=== PATIENT | male | born 1945 | race Caucasian/White ===

== ENCOUNTER 2022-05-11 16:45 | Emergency (ER) | payer OTHER ==
[~2022-05-11] VITALS: Ht 193 cm; Wt 145.1 kg
--- NOTE | 2022-05-11 17:05 | NUR ---
PT TRIAGED IN WAITING ROOM. PT HAS C/O RIGHT LOWER EXTREMITY PAIN FOR ONE WEEK. PT HAS BLE 2+ EDEMA, RIGHT LEG IS HOT TO TOUCH, COMPARED TO LLE EXTREMITY. PT HAS SOB UPON EXERTION. PT AMBULATES WITH CANE. PT REPORTS HX OF HTN, CHRONIC BACK PAIN, PACEMAKER, AORTIC ANERYSM, CHOLCYSTECTOMY, AND DX OF UTI 10 DAYS AGO WITH 2 DAYS LEFT OF ANTIBIOTIC MEDICATION TO COMPLETE-CIPRO. VSS. RESP E/U. ON R/A. NO COUGH OR SOB NOTED. O2 SAT 95%. DENIES N/V/D/C.
[2022-05-11 17:14] VITALS: BP_SYST 129
--- NOTE | 2022-05-11 17:25 | NUR ---
DR. LOREDO ASSESSED PT, STATED HE WILL ORDER U/S. PT AGREED WITH POC.
--- NOTE | 2022-05-11 17:38 | NUR ---
report to hany rubi saw patient in triage
--- NOTE | 2022-05-11 17:43 | NUR ---
ERMD STATED NO IV START
[2022-05-11 18:25] LABS: BASOPHILS # (AUTO) 0.1 K/uL (0.0-0.2); BASOPHILS % (AUTO) 0.6 % (0.0-2.0); EOSINOPHILS # (AUTO) 0.4 K/uL (0.0-0.4); EOSINOPHILS % (AUTO) 3.7 % (0.0-4.0); HEMATOCRIT 36.1 % (36-54); HEMOGLOBIN 12.2 g/dL (14.0-18.0); LYMPHOCYTES # (AUTO) 1.6 K/uL (1.0-5.5); LYMPHOCYTES % (AUTO) 15.3 % (20.5-51.5); MEAN CORPUSCULAR HEMOGLOBIN 31 pg (27-31); MEAN CORPUSCULAR HGB CONC 34 % (32-36); MEAN CORPUSCULAR VOLUME 91 fL (79.0-98.0); MONOCYTES # (AUTO) 1.2 K/uL (0.0-1.0); MONOCYTES % (AUTO) 11.1 % (1.7-9.3); NEUTROPHILS # (AUTO) 7.3 K/uL (1.8-7.7); NEUTROPHILS % (AUTO) 69.3 % (40.0-70.0); PLATELET COUNT (AUTO) 178 K/uL (130-430); RED BLOOD CELL COUNT(AUTO) 3.95 MIL/uL (4.2-6.2); WHITE BLOOD COUNT (AUTO) 10.6 K/uL (4.8-10.8)
[2022-05-11 18:50] LABS: ANION GAP 5 (5-15); CALCIUM 8.9 mg/dL (8.4-11.0); CHLORIDE 100 mmol/L (98-107); CREATININE 0.99 mg/dL (0.55-1.30); GLUCOSE 145 mg/dL (70-99); POTASSIUM 4.3 mmol/L (3.5-5.1); SODIUM SERUM 138 mmol/L (136-145); UREA NITROGEN, BLOOD 21 mg/dL (8-21)
[2022-05-11 18:56] LABS: ALANINE AMINOTRANSFERASE 9 U/L (12-78); ALBUMIN 3.1 g/dL (3.4-4.8); ASPARTATE AMINOTRANSFERASE 14 U/L (10-37); C-REACTIVE PROTEIN QUANT 9.8 mg/dL (0-0.5); TOTAL BILIRUBIN 0.6 mg/dL (0.0-1.0)
[2022-05-11 21:14] VITALS: BP_SYST 122
--- NOTE | 2022-05-11 21:14 | NUR ---
Patient given written and verbal discharge instructions and verbalizes understanding. ER MD discussed with patient the results and treatment provided. Patient in stable condition. ID arm band removed. No Rx given. Patient educated on pain management and to follow up with PMD. Pain Scale 5/10. Opportunity for questions provided and answered. Patient accompanied by son in law.
== END 2022-05-11 21:14 | disposition home or self-care (01) ==
LOC: SED 16:45
DX: M79.661 Pain in right lower leg (principal); Z79.899 Other long term (current) drug therapy
CPT/HCPCS: 36415; 80053; 83605; 85025; 86140; 93971; 99284

== ENCOUNTER 2024-03-27 11:26 | Inpatient (IN) | payer OTHER ==
[~2024-03-27] VITALS: Ht 193 cm; Wt 154.2 kg
[2024-03-27 11:56] VITALS: BP_SYST 161; PULSE 64; RESP 17; TEMP 97.4; O2SAT 95
[2024-03-27 12:19] LABS: BASOPHILS # (AUTO) 0.1 K/uL (0.0-0.2); BASOPHILS % (AUTO) 0.8 % (0.0-2.0); EOSINOPHILS # (AUTO) 0.4 K/uL (0.0-0.4); EOSINOPHILS % (AUTO) 4.3 % (0.0-4.0); HEMATOCRIT 35.2 % (36-54); HEMOGLOBIN 11.6 g/dL (14.0-18.0); LYMPHOCYTES # (AUTO) 1.3 K/uL (1.0-5.5); LYMPHOCYTES % (AUTO) 15.5 % (20.5-51.5); MEAN CORPUSCULAR HEMOGLOBIN 31 pg (27-31); MEAN CORPUSCULAR HGB CONC 33 % (32-36); MEAN CORPUSCULAR VOLUME 93 fL (79.0-98.0); MONOCYTES # (AUTO) 0.7 K/uL (0.0-1.0); MONOCYTES % (AUTO) 8.3 % (1.7-9.3); NEUTROPHILS # (AUTO) 5.9 K/uL (1.8-7.7); NEUTROPHILS % (AUTO) 71.1 % (40.0-70.0); PLATELET COUNT (AUTO) 180 K/uL (130-430); WHITE BLOOD COUNT (AUTO) 8.3 K/uL (4.8-10.8)
[2024-03-27] MEDS ORDERED: methylPREDNISolone SOD SUCC/PF 62.5 MG/ML VIAL ONE (12:58)
[2024-03-27] MEDS: methylPREDNISolone SOD SUCC 500 MG/VIAL (Solu-MEDROL) IV ONE (13:04)
[2024-03-27] MEDS: NACL 0.9% 1,000 ML IV ONE (13:04)
[2024-03-27] MEDS: DIPHENHYDRAMINE INJ 50 MG/ML VIAL IVP ONE (13:05)
[2024-03-27 13:09] LABS: ANION GAP 5 (5-15); CALCIUM 8.7 mg/dL (8.4-11.0); CARBON DIOXIDE 30 mmol/L (23-29); CHLORIDE 102 mmol/L (98-107); CREATININE 1.14 mg/dL (0.55-1.30); GLUCOSE 153 mg/dL (74-106); POTASSIUM 4.2 mmol/L (3.5-5.1); SODIUM SERUM 137 mmol/L (136-145); UREA NITROGEN, BLOOD 18 mg/dL (8-21)
[2024-03-27] MEDS ORDERED: FURO40TA5 PO (14:06)
[2024-03-27] MEDS ORDERED: POTA-198 PO (14:06)
[2024-03-27] MEDS ORDERED: SIMV-345 PO (14:06)
[2024-03-27] MEDS ORDERED: GABA300T25 PO (14:08)
[2024-03-27] MEDS ORDERED: METF-379 PO (14:08)
[2024-03-27] MEDS ORDERED: LOSA50TA28 PO (14:08)
[2024-03-27] MEDS ORDERED: ASPI81CA PO (14:08)
[2024-03-27] MEDS ORDERED: DOXA2TAB2 PO (14:08)
[2024-03-27] MEDS ORDERED: NEBI5TAB2 PO (14:08)
[2024-03-27 15:30] VITALS: PULSE 68; O2SAT 95
[2024-03-27] MEDS ORDERED: MORPHINE 2 MG/ML INJ. SYRINGE IVP PRN (15:30)
[2024-03-27] MEDS ORDERED: ALBUTEROL SULFATE 0.083% 2.5 MG/3 ML VIAL.NEB INH PRN (15:30)
[2024-03-27] MEDS ORDERED: HYDROcodone/ACETAMIN 5-325 MG TAB (NORCO/ VICODIN) PO PRN (15:30)
[2024-03-27] MEDS ORDERED: ACETAMINOPHEN 325 MG TABLET PO PRN (15:30)
[2024-03-27] MEDS ORDERED: ONDANSETRON HCL 4 MG/2 ML VIAL IVP PRN (15:30)
[2024-03-27] MEDS ORDERED: ASPIRIN 81 MG TAB.CHEW ONE (15:51)
[2024-03-27] MEDS: ASPIRIN 81 MG TAB.CHEW PO ONE (15:53)
[2024-03-27] MEDS: LOSARTAN POTASSIUM 50 MG TABLET (COZAAR) PO ONE (16:29)
[2024-03-27 17:41] LABS: BILIRUBIN,URINE NEGATIVE (NEGATIVE); BLOOD, URINE NEGATIVE (NEGATIVE); CLARITY/URINE CLEAR (CLEAR); COLOR,URINE YELLOW (YELLOW); GLUCOSE,URINE NEGATIVE (NEGATIVE); KETONES,URINE NEGATIVE (NEGATIVE); LEUKOCYTE ESTERASE ,URINE TRACE (NEGATIVE); NITRITE, URINE NEGATIVE (NEGATIVE); PROTEIN URINE NEGATIVE (NEGATIVE)
[2024-03-27 17:53] LABS: BACTERIA,URINE RARE /HPF (None Seen); MUCUS,URINE None Seen /LPF (None Seen); RBC,URINE 0-3 /HPF (0-3)
[2024-03-27 18:16] VITALS: BP_SYST 156; PULSE 66; RESP 18; TEMP 98.6; O2SAT 94
[2024-03-27] MEDS: hydrALAZINE HCL 20 MG/ML VIAL IVP PRN (20:22)
[2024-03-27] MEDS: HYDROcodone/ACETAMIN 10-325 MG TAB PO PRN (20:22)
[2024-03-28] MEDS ORDERED: DOXAZOSIN MESYLATE 2 MG TABLET PO SCH (09:00)
[2024-03-28] MEDS ORDERED: LOSARTAN POTASSIUM 50 MG TABLET (COZAAR) PO SCH (09:00)
[2024-03-28] MEDS ORDERED: ASPIRIN 81 MG TAB.CHEW PO SCH (09:00)
[2024-03-28] MEDS ORDERED: SIMVASTATIN 40 MG TABLET PO SCH (09:00)
== END 2024-03-27 21:27 | disposition left against medical advice (07) | DRG 206 ==
LOC: SED 11:26 → STU 15:25
PROVIDERS: ADMIT Family Medicine; ATTEND Family Medicine
DX: M94.0 Chondrocostal junction syndrome [Tietze] (principal); Z68.41 Body mass index [BMI] 40.0-44.9, adult; I10 Essential (primary) hypertension; E66.01 Morbid (severe) obesity due to excess calories; E78.5 Hyperlipidemia, unspecified; E11.9 Type 2 diabetes mellitus without complications; Z53.29 Procedure and treatment not carried out because of patient's decision for other reasons; Z79.84 Long term (current) use of oral hypoglycemic drugs; Z79.899 Other long term (current) drug therapy; Z88.8 Allergy status to other drugs, medicaments and biological substances; Z95.0 Presence of cardiac pacemaker; Z79.82 Long term (current) use of aspirin; Z90.49 Acquired absence of other specified parts of digestive tract
CPT/HCPCS: 36415; 71045; 71275; 80048; 81000; 81001; 81015; 83037; 83880; 84484; 85025; 87086; 93005; 94070; 96374; 96375; 99285; G0378; J0360; J1200; J2930; Q9967

== ENCOUNTER 2024-03-30 03:51 | Inpatient (IN) | payer OTHER ==
[~2024-03-30] VITALS: Ht 190.5 cm; Wt 156.5 kg
[~2024-03-30 03:51] MED LIST: ASPI81CA PO; DOXA2TAB2 PO; FURO40TA5 PO; GABA300T25 PO; LOSA50TA28 PO; METF-379 PO; NEBI5TAB9 PO; POTA-198 PO; SIMV-345 PO
[2024-03-30 04:03] VITALS: BP_SYST 133; PULSE 70; RESP 16; TEMP 97.7; O2SAT 94
[2024-03-30 04:42] LABS: BASOPHILS # (AUTO) 0.1 K/uL (0.0-0.2); BASOPHILS % (AUTO) 0.9 % (0.0-2.0); EOSINOPHILS # (AUTO) 0.3 K/uL (0.0-0.4); EOSINOPHILS % (AUTO) 3.6 % (0.0-4.0); HEMATOCRIT 35.8 % (36-54); LYMPHOCYTES # (AUTO) 1.5 K/uL (1.0-5.5); MEAN CORPUSCULAR HEMOGLOBIN 31 pg (27-31); MEAN CORPUSCULAR HGB CONC 34 % (32-36); MEAN CORPUSCULAR VOLUME 92 fL (79.0-98.0); MONOCYTES # (AUTO) 0.7 K/uL (0.0-1.0); NEUTROPHILS # (AUTO) 6.2 K/uL (1.8-7.7); NEUTROPHILS % (AUTO) 70.5 % (40.0-70.0); PLATELET COUNT (AUTO) 203 K/uL (130-430); RED BLOOD CELL COUNT(AUTO) 3.88 MIL/uL (4.2-6.2); RED CELL DISTRIBUTION WIDTH 14.4 % (9.0-15.0); WHITE BLOOD COUNT (AUTO) 8.8 K/uL (4.8-10.8)
[2024-03-30] MEDS ORDERED: NITROGLYCERIN 1 INCH (GM) OINT. ONE (04:45)
[2024-03-30] MEDS: MORPHINE 4 MG INJ. 4 MG/ML VIAL IVP ONE (04:46)
[2024-03-30] MEDS: NITROGLYCERIN 1 INCH (GM) OINT. TP ONE (04:47)
[2024-03-30 05:11] LABS: ALANINE AMINOTRANSFERASE 15 U/L (12-78); ALBUMIN 3.1 g/dL (3.4-4.8); ANION GAP 9 (5-15); ASPARTATE AMINOTRANSFERASE 14 U/L (10-37); BILIRUBIN,DIRECT 0.2 mg/dL (0.0-0.3); CALCIUM 8.8 mg/dL (8.4-11.0); CARBON DIOXIDE 28 mmol/L (23-29); CHLORIDE 104 mmol/L (98-107); GLUCOSE 168 mg/dL (74-106); POTASSIUM 3.9 mmol/L (3.5-5.1); SODIUM SERUM 141 mmol/L (136-145); TOTAL BILIRUBIN 0.7 mg/dL (0.0-1.0); TOTAL PROTEIN, SERUM 6.6 g/dL (6.4-8.3); UREA NITROGEN, BLOOD 24 mg/dL (8-21)
[2024-03-30 08:25] VITALS: BP_SYST 130; PULSE 84; RESP 18; TEMP 97; O2SAT 95
[2024-03-30 08:36] VITALS: BP_SYST 130; PULSE 84; RESP 17; TEMP 98
[2024-03-30] MEDS ORDERED: LORazepam 2 MG/ML VIAL IVP PRN (08:45)
[2024-03-30] MEDS ORDERED: HYDROcodone/ACETAMIN 10-325 MG TAB PO PRN (08:45)
[2024-03-30] MEDS ORDERED: ACETAMINOPHEN 325 MG TABLET PO PRN (08:45)
[2024-03-30] MEDS ORDERED: NALOXONE HCL 0.4 MG/ML AMP (NARCAN) IVP PRN ×2 (08:45)
[2024-03-30] MEDS ORDERED: INSULIN REGULAR, HUMAN 100 UNITS/ML, 3 ML VIAL (humuLIN R) SUBCUT PRN (08:45)
[2024-03-30] MEDS ORDERED: GABAPENTIN PO SCH (09:00)
[2024-03-30 09:21] LABS: CHOLESTEROL 124 mg/dL (<200); HDL CHOLESTEROL 44 mg/dL (>45); TRIGLYCERIDES 109 mg/dL (30-150)
[2024-03-30] MEDS: FUROSEMIDE 40 MG TABLET PO SCH (11:40)
[2024-03-30] MEDS: DOXAZOSIN MESYLATE 2 MG TABLET PO SCH (11:41)
[2024-03-30] MEDS: LOSARTAN POTASSIUM 50 MG TABLET (COZAAR) PO SCH (11:42)
[2024-03-30] MEDS: POTASSIUM CHLORIDE 20 MEQ TABLET.ER PO SCH (11:42)
[2024-03-30] MEDS: METOPROLOL TARTRATE 25 MG TABLET PO ONE (11:48)
[2024-03-30 13:11] VITALS: O2SAT 96
[2024-03-30] MEDS: HYDROcodone/ACETAMIN 5-325 MG TAB (NORCO/ VICODIN) PO PRN (14:06)
[2024-03-30] MEDS: ONDANSETRON HCL 4 MG/2 ML VIAL IVP PRN (14:54)
[2024-03-30] MEDS: NORMAL SALINE 5 ML DISP.SYRIN IVF SCH (14:55)
[2024-03-30] MEDS ORDERED: METOPROLOL TARTRATE 25 MG TABLET PO SCH (21:00)
[2024-03-30] MEDS: CARVEDILOL 12.5 MG TABLET (COREG) PO SCH (22:17)
[2024-03-30] MEDS: SIMVASTATIN 40 MG TABLET PO SCH (22:18)
[2024-03-30 22:21] VITALS: BP_SYST 130; PULSE 63; RESP 20; TEMP 98; O2SAT 98
[2024-03-30 23:03] VITALS: O2SAT 95
[2024-03-31 01:22] VITALS: BP_SYST 122; BP_SYST 133; PULSE 66; PULSE 79; RESP 18; RESP 19; TEMP 97.7; TEMP 98.6; O2SAT 93; O2SAT 95
[2024-03-31 04:36] LABS: BASOPHILS # (AUTO) 0.1 K/uL (0.0-0.2); BASOPHILS % (AUTO) 0.7 % (0.0-2.0); EOSINOPHILS # (AUTO) 0.4 K/uL (0.0-0.4); EOSINOPHILS % (AUTO) 3.4 % (0.0-4.0); HEMATOCRIT 33.8 % (36-54); HEMOGLOBIN 11.5 g/dL (14.0-18.0); LYMPHOCYTES # (AUTO) 1.4 K/uL (1.0-5.5); LYMPHOCYTES % (AUTO) 13.4 % (20.5-51.5); MEAN CORPUSCULAR HEMOGLOBIN 31 pg (27-31); MEAN CORPUSCULAR HGB CONC 34 % (32-36); MEAN CORPUSCULAR VOLUME 92 fL (79.0-98.0); MONOCYTES % (AUTO) 9.5 % (1.7-9.3); NEUTROPHILS # (AUTO) 7.6 K/uL (1.8-7.7); PLATELET COUNT (AUTO) 187 K/uL (130-430); RED BLOOD CELL COUNT(AUTO) 3.66 MIL/uL (4.2-6.2); RED CELL DISTRIBUTION WIDTH 14.2 % (9.0-15.0); WHITE BLOOD COUNT (AUTO) 10.4 K/uL (4.8-10.8)
[2024-03-31 05:04] LABS: ANION GAP 10 (5-15); CALCIUM 8.5 mg/dL (8.4-11.0); CARBON DIOXIDE 27 mmol/L (23-29); CHLORIDE 104 mmol/L (98-107); CREATININE 1.23 mg/dL (0.55-1.30); GLUCOSE 144 mg/dL (74-106); POTASSIUM 4.4 mmol/L (3.5-5.1); SODIUM SERUM 141 mmol/L (136-145); UREA NITROGEN, BLOOD 27 mg/dL (8-21)
[2024-03-31 08:00] VITALS: BP_SYST 114; PULSE 81; RESP 16; TEMP 97; O2SAT 94
[2024-03-31] MEDS: ASPIRIN 81 MG TAB.CHEW PO SCH (09:49)
[2024-03-31 10:00] VITALS: O2SAT 94
[2024-03-31] MEDS ORDERED: COR12.5 PO (10:07)
[2024-03-31 10:25] VITALS: BP_SYST 114; PULSE 81; RESP 17; TEMP 97; O2SAT 94
== END 2024-03-31 11:00 | disposition home health service (06) | DRG 206 ==
LOC: SED 03:51 → STU 05:24 → SMU 12:13
PROVIDERS: ADMIT Preventive Medicine Preventive Medicine/Occupational Environmental Medicine; ATTEND Preventive Medicine Preventive Medicine/Occupational Environmental Medicine
DX: M94.0 Chondrocostal junction syndrome [Tietze] (principal); E44.1 Mild protein-calorie malnutrition; Z68.43 Body mass index [BMI] 50.0-59.9, adult; D64.9 Anemia, unspecified; I10 Essential (primary) hypertension; E88.09 Other disorders of plasma-protein metabolism, not elsewhere classified; E78.5 Hyperlipidemia, unspecified; E11.65 Type 2 diabetes mellitus with hyperglycemia; E11.21 Type 2 diabetes mellitus with diabetic nephropathy; N40.0 Benign prostatic hyperplasia without lower urinary tract symptoms; Z95.0 Presence of cardiac pacemaker; Z79.82 Long term (current) use of aspirin; Z79.899 Other long term (current) drug therapy
CPT/HCPCS: 36415; 71045; 80048; 80061; 80076; 82948; 83880; 84484; 85025; 85379; 87081; 93306; 96374; 99285; J1815; J2270; J2405